=== PATIENT | female | born 1985 | race Caucasian/White ===

== ENCOUNTER → 2019-06-13 10:59 | Outpatient (CLI) | payer OTHER, SELFPAY ==
[2019-06-13 11:41] LABS: Basophils % 0.4 % (0.1-2.0); Eosinophils # 0.1 K/mm3 (0.0-0.4); Eosinophils % 1.8 % (0.1-12.0); Hematocrit 31.7 % (37.0-47.0); Hemoglobin 10.5 g/dL (12.2-16.2); Lymphocytes # 1.5 K/mm3 (0.7-4.5); Lymphocytes % 19.7 % (10-50); Mean Corpuscular Hemoglobin 28.8 pg (27.0-31.2); Mean Corpuscular Volume 87.4 fl (81-99); Mean Platelet Volume 8.3 fl (7.4-10.4); Monocytes # 0.3 K/mm3 (0.1-1.0); Monocytes % 4.5 % (1.7-9.3); Neutrophils # 5.5 K/mm3 (1.8-7.8); Neutrophils % 73.6 % (37.0-80.0); Platelet Count 213 K/mm3 (142-424); Red Blood Count 3.63 M/mm3 (4.20-5.40); Red Cell Distribution Width 14.5 % (11.5-17.5); White Blood Count 7.4 K/mm3 (4.8-10.8)
[2019-06-13 12:34] LABS: Thyroid Stimulating Hormone 1.05 uIU/ml (0.358-3.740)
[2019-06-13 14:17] LABS: Amphetamine/Metha Screen,Urine Negative ng/mL (<1000); Barbiturates Screen,Urine Negative ng/mL (<200); Benzodiazepines Screen,Urine Negative ng/mL (<200); Cannabinoid Screen,Urine Negative ng/mL (<50); Cocaine Screen,Urine Negative ng/mL (<300); Methadone Screen,Urine Negative ng/mL (<300); Opiate Screen,Urine Negative ng/mL (<300); Phencyclidine Screen,Urine Negative ng/mL (<25)
[2019-06-15 08:19] LABS: Hepatitis B Surface Antigen Negative (Negative); Hepatitis C Antibody >11.0 s/co ratio (0.0-0.9); Rapid Plasma Reagin Ab Titer Non Reactive (NonRea<1:1); Rubella Antibodies, IgG 1.32 index (Immune >0.99)
[2019-06-15 08:20] LABS: HIV Screen 4th Generation wRfx Non Reactive (Non Reactive)
== END ==
PROVIDERS: Visit Provider Obstetrics & Gynecology
DX: Z34.90 Encounter for supervision of normal pregnancy, unspecified, unspecified trimester (principal)
CPT/HCPCS: 36415; 80305; 84443; 85025; 86592; 86703; 86762; 86850; 87340; 87380; G0432

== ENCOUNTER 2019-06-23 21:25 | Outpatient (CLI) | payer OTHER, SELFPAY ==
[2019-06-23 21:59] VITALS: BMI 28.4
[2019-06-23 22:32] VITALS: BP 106/76; PULSE 95; RESP 16; TEMP 37; O2SAT 99; BMI 28.4
[2019-06-23 22:43] LABS: Microscopic, Urine URINE MICROSCOPIC (MICROSCOPIC)
[2019-06-23 22:46] LABS: Fetal Membrane Rupture (Rapid) Negative (Negative)
[2019-06-23 22:48] LABS: Appearance,Urine CLEAR (Clear); Bilirubin,Urine Negative (Negative); Blood, Urine Negative (Negative); Color,Urine YELLOW (Yellow); Glucose,Urine (UA) Negative (Negative); Ketones,Urine Negative (Negative); Leukocyte Esterase,Urine Negative (Negative); Nitrate,Urine Negative (Negative); PH,Urine 7.5 (5.0-8.5); Protein,Urine Negative (Negative); Specific Gravity, Urine 1.015 (1.005-1.030); Urobilinogen,Urine 0.2 EU/dl (0.2)
[2019-06-23 23:23] LABS: Fetal Fibronectin (Rapid) Negative (Negative)
[2019-06-23 23:33] LABS: Bacteria,Urine Trace /lpf; WBC,Urine Occasional #/hpf (0-3)
[2019-06-24 01:56] LABS: Amphetamine/Metha Screen,Urine Negative ng/mL (<1000); Barbiturates Screen,Urine Negative ng/mL (<200); Benzodiazepines Screen,Urine Negative ng/mL (<200); Cannabinoid Screen,Urine Negative ng/mL (<50); Cocaine Screen,Urine Negative ng/mL (<300); Methadone Screen,Urine Negative ng/mL (<300); Opiate Screen,Urine Negative ng/mL (<300); Phencyclidine Screen,Urine Negative ng/mL (<25)
== END 2019-06-24 00:05 | disposition home or self-care (01) ==
LOC: OBOUT 21:30 → OB 21:30
PROVIDERS: PCP Obstetrics & Gynecology; Visit Provider Obstetrics & Gynecology
DX: O47.03 False labor before 37 completed weeks of gestation, third trimester (principal); Z3A.26 26 weeks gestation of pregnancy
CPT/HCPCS: 59025; 80305; 81001; 82731; 84112; 96360

== ENCOUNTER → 2019-07-15 09:06 | Outpatient (CLI) | payer OTHER, SELFPAY ==
[2019-07-15 10:16] LABS: Glucose,Fasting 83 mg/dL (60-105)
[2019-07-15 11:35] LABS: Glucose 1 Hour 144 mg/dL (74-106)
== END ==
PROVIDERS: Visit Provider Obstetrics & Gynecology
DX: Z34.90 Encounter for supervision of normal pregnancy, unspecified, unspecified trimester (principal)
CPT/HCPCS: 36415; 82951

== ENCOUNTER 2019-07-29 18:55 | Outpatient (CLI) | payer OTHER, SELFPAY ==
[2019-07-29 19:16] VITALS: BP 109/68; PULSE 101; RESP 18; TEMP 36.7; O2SAT 97; BMI 29.5
[2019-07-29 19:42] LABS: Microscopic, Urine URINE MICROSCOPIC (MICROSCOPIC)
[2019-07-29 19:43] LABS: Appearance,Urine CLEAR (Clear); Bilirubin,Urine Negative (Negative); Blood, Urine Negative (Negative); Color,Urine YELLOW (Yellow); Glucose,Urine (UA) Negative (Negative); Ketones,Urine 1+ (Negative); Leukocyte Esterase,Urine Negative (Negative); Nitrate,Urine Negative (Negative); Protein,Urine Negative (Negative); Specific Gravity, Urine 1.015 (1.005-1.030); Urobilinogen,Urine 0.2 EU/dl (0.2)
[2019-07-29 19:47] LABS: WBC,Urine Occasional #/hpf (0-3)
[2019-07-29 19:49] LABS: Amphetamine/Metha Screen,Urine Negative ng/mL (<1000); Barbiturates Screen,Urine Negative ng/mL (<200); Benzodiazepines Screen,Urine Negative ng/mL (<200); Cannabinoid Screen,Urine Negative ng/mL (<50); Cocaine Screen,Urine Negative ng/mL (<300); Methadone Screen,Urine Negative ng/mL (<300); Opiate Screen,Urine Negative ng/mL (<300); Phencyclidine Screen,Urine Negative ng/mL (<25)
--- NOTE | 2019-07-29 19:49 | US_ITS ---
PROCEDURE: US OB BIOPHYSICAL PROFILE CLINICAL INDICATION: CHECK FOR PLACENTA PREVIA Third trimester vaginal bleeding TECHNIQUE: Transabdominal ultrasound FINDINGS: Cervix appears closed measuring 3.5 cm. There is a single live fetus present which is in breech presentation. Average ultrasound age 34 weeks 4 days. Following parameters are obtained: BPD 35 weeks 4 days, HC 36 weeks 4 days, FL 31 weeks 3 days. Heart rate is 152 beats per minute. Study is somewhat limited technically. The placenta is posterior and grade 1. No previa or abruption is evident. Biophysical profile is 8 of 8. IMPRESSION: Live IUP in breech presentation. Average ultrasound age is 34 weeks 4 days. The femoral and however is discordant and may not be accurate. Recommend nonemergent follow-up OB ultrasound Biophysical profile is 8 of 8. Placenta is posterior without previa or abruption. Dictated by: Lex Rocha MD 07/30/2019 07:51 Electronically signed by Lex Rocha MD in [place] 07/30/2019 10:32
== END 2019-07-29 21:23 | disposition home or self-care (01) ==
LOC: OBOUT 18:57 → OB 18:57
PROVIDERS: Visit Provider Obstetrics & Gynecology
DX: O26.853 Spotting complicating pregnancy, third trimester (principal); Z3A.32 32 weeks gestation of pregnancy; R10.9 Unspecified abdominal pain
CPT/HCPCS: 76819; 80305; 81001

== ENCOUNTER → 2019-08-11 17:10 | Outpatient (CLI) | payer OTHER, SELFPAY | PROVIDERS: Visit Provider Obstetrics & Gynecology | DX: Z34.90 Encounter for supervision of normal pregnancy, unspecified, unspecified trimester (principal) | CPT/HCPCS: 86403 ==

== ENCOUNTER 2019-08-13 20:19 | Outpatient (CLI) | payer SELFPAY ==
[2019-08-13 20:32] VITALS: BMI 29.9
[2019-08-13 20:41] LABS: Microscopic, Urine URINE MICROSCOPIC (MICROSCOPIC)
[2019-08-13 20:53] VITALS: BP 109/71; PULSE 89; RESP 18; TEMP 36.8; O2SAT 98; BMI 29.9
[2019-08-13 20:53] LABS: Appearance,Urine CLEAR (Clear); Bilirubin,Urine Negative (Negative); Blood, Urine Negative (Negative); Color,Urine YELLOW (Yellow); Glucose,Urine (UA) Negative (Negative); Ketones,Urine Negative (Negative); Leukocyte Esterase,Urine Negative (Negative); Nitrate,Urine Negative (Negative); Protein,Urine Negative (Negative); Urobilinogen,Urine 0.2 EU/dl (0.2)
[2019-08-13 20:58] LABS: Amorphous Sediment,Urine 1+ /lpf
[2019-08-13 21:00] LABS: Amphetamine/Metha Screen,Urine Negative ng/mL (<1000); Barbiturates Screen,Urine Negative ng/mL (<200); Benzodiazepines Screen,Urine Negative ng/mL (<200); Cannabinoid Screen,Urine Negative ng/mL (<50); Cocaine Screen,Urine Negative ng/mL (<300); Methadone Screen,Urine Negative ng/mL (<300); Opiate Screen,Urine Negative ng/mL (<300); Phencyclidine Screen,Urine Negative ng/mL (<25)
== END 2019-08-13 22:05 ==
LOC: OBOUT 20:23 → OB 20:23
PROVIDERS: PCP Obstetrics & Gynecology; Visit Provider Obstetrics & Gynecology
DX: O47.03 False labor before 37 completed weeks of gestation, third trimester (principal); Z3A.34 34 weeks gestation of pregnancy
CPT/HCPCS: 59025; 80305; 81001; 96372